=== PATIENT | male | born 1980 | race African-American/Black ===

== ENCOUNTER 2017-12-13 14:40 | Emergency (ER) | payer SELFPAY ==
[2017-12-13] MEDS ORDERED: Aspirin 325 MG TAB ONE (15:11)
[2017-12-13] MEDS ORDERED: Lorazepam 2 MG/ML VIAL ONE (15:11)
[2017-12-13 15:16] LABS: INR-International Normal Ratio 0.9; PTT 24.7 SEC (22.9-36.1); Prothrombin Time 12.6 SEC (12.0-14.7)
[2017-12-13 15:26] LABS: Anion Gap 19 mmol/L (10-20); BUN (Urea Nitrogen) 6 mg/dL (8.9-20.6); Calc. Creatinine Clearance 0 mL/min (70-130); Carbon Dioxide 23 mmol/L (22-29); Chloride 98 mmol/L (98-107); Estimated GFR-MDRD 67; Glucose 245 mg/dL (70-105); Potassium 3.2 mmol/L (3.5-5.1); Sodium 137 mmol/L (136-145)
[2017-12-13 15:27] LABS: ALT (SGPT) 25 U/L (8-55); AST (SGOT) 20 U/L (5-34); Albumin 4.6 g/dL (3.5-5.0); Alkaline Phosphatase 61 U/L (40-150); Bilirubin, Total 0.6 mg/dL (0.2-1.2); CK (CPK) 176 U/L (30-200); Calcium 9.8 mg/dL (7.8-10.44); Globulin 2.6 g/dL (2.4-3.5); Protein, Total 7.2 g/dL (6.0-8.3)
[2017-12-13 15:30] LABS: CKMB 0.9 ng/mL (0-6.6); Troponin I Less than 0.010 ng/mL (< 0.028)
--- NOTE | 2017-12-13 16:01 | RAD ---
PORTABLE CHEST: HISTORY: Chest pain x1 day. FINDINGS: Heart size and mediastinum are within normal limits. The lungs are clear of infiltrates. No bony findings. IMPRESSION: No active intrathoracic disease. POS: [id number]
[2017-12-13 16:48] LABS: Hemoglobin 15.8 g/dL (14.0-18.0); Mean Corpuscular HGB CONC 33.5 g/dL (32.0-36.0); Mean Corpuscular Hemoglobin 30.8 pg (27.0-31.0); Platelet Count 281 thou/uL (130-400); RBC Distribution Width 11.2 % (11.5-14.5); Red Blood Cell (RBC) Count 5.14 mill/uL (4.70-6.10)
[2017-12-13 16:49] LABS: #Basophils 0.2 thou/uL (0.0-0.2); #Lymphocytes 3.4 thou/uL (1.20-3.40); #Monocytes 0.5 thou/uL (0.11-0.59); %Basophils 1.7 % (0.0-1.0); %Eosinophils 0.5 % (0.0-10.0); %Lymphocytes 37.2 % (21.0-51.0); %Monocytes 5.1 % (0.0-10.0); %Neutrophils 55.5 % (42.0-75.0); Mean Platelet Volume 7.2 fL (7.4-10.4)
== END 2017-12-13 17:05 | disposition home or self-care (01) ==
LOC: MADERS 14:40
DX: F43.0 Acute stress reaction (principal); R53.83 Other fatigue; I10 Essential (primary) hypertension; Z79.899 Other long term (current) drug therapy
CPT/HCPCS: 36416; 71045; 80053; 82550; 82553; 83735; 83880; 84484; 85025; 85610; 85730; 93005; 94760; 96374; J2060